=== PATIENT | male | born 1985 | race Caucasian/White ===

== ENCOUNTER → 2025-01-20 15:31 | Outpatient (CLI) | payer SELFPAY ==
--- NOTE | 2025-01-20 15:41 | DI.RAD.S_ITS ---
PROCEDURE: XR FINGER LT MIN 2V INDICATIONS: Slammed finger in between metal while working on car TECHNIQUE: AP hand, 2 views of the 5th finger(s) acquired. COMPARISON: None FINDINGS: Bones: Comminuted 5th proximal phalangeal fracture with minimal displacement. Curvilinear metallic density noted in the 4th finger soft tissues Soft tissues: No suspicious soft tissue calcifications. IMPRESSION: Comminuted minimally displaced 5th proximal phalangeal fracture Metallic foreign body 4th finger soft tissues Approved by: Isaiah Ely M.D. on 01/20/2025 at 15:27
== END ==
PROVIDERS: Referring Provider Nurse Practitioner Family; Visit Provider Nurse Practitioner Family
DX: S62.617A Displaced fracture of proximal phalanx of left little finger, initial encounter for closed fracture (principal); S60.451A Superficial foreign body of left index finger, initial encounter; W23.0XXA Caught, crushed, jammed, or pinched between moving objects, initial encounter
CPT/HCPCS: 73140